=== PATIENT | female | born 1940 | race African-American/Black ===

== ENCOUNTER → 2016-12-16 | Outpatient (CLI) | payer OTHER ==
--- NOTE | 2016-12-16 10:51 | KCIC ---
EXAM: Dual energy x-ray absorptiometry (DEXA). HISTORY: Postmenopausal female presents for osteoporosis screening. COMPARISON: 02/08/2015. TECHNIQUE: Dual energy x-ray absorptiometry of the lumbar spine and left hip was performed. Calculation of bone mineral density based on standard deviations above or below the expected young adult normal value (T-score) was completed. FINDINGS: The average bone mineral density in the 1st through 4th lumbar vertebrae is 1.148 g/cmxcm, corresponding with a T-score of 0.9. There has been a 4.4 percent increase in bone mineral density of the lumbar spine compared to a study dated 02/08/2015. The average total bone mineral density in the left hip is 0.844 g/cmxcm, corresponding with a T-score of -0.8. There has been a 7.6 percent decrease in bone mineral density of the left hip compared to a study dated 02/08/2015. IMPRESSION: Normal bone mineral density. Note: Definitions established by the [employer]: 1. Normal: T-score is -1.0 or above. 2. Osteopenia: T-score is between -1.0 and -2.5 . 3. Osteoporosis: T-score is -2.5 or below. Electronically signed by: Soni Shields MD (12/16/2016 10:48 AM) [id number]
== END | disposition home or self-care (01) ==
LOC: KCIC DEXA 10:06
PROVIDERS: ATTEND Family Medicine
DX: Z13.820 Encounter for screening for osteoporosis (principal); M85.88 Other specified disorders of bone density and structure, other site; Z78.0 Asymptomatic menopausal state
CPT/HCPCS: 77080